=== PATIENT | male | born 1970 ===

== ENCOUNTER 2024-02-26 23:07 | Emergency (ER) | payer OTHER, MEDICAID, SELFPAY ==
[2024-02-26 23:11] VITALS: BP 180/87; PULSE 79; RESP 18; TEMP 36.6; O2SAT 93
[2024-02-26 23:19] VITALS: PULSE 77; O2SAT 95
[2024-02-26 23:20] VITALS: BP 174/85; PULSE 75; O2SAT 95
--- NOTE | 2024-02-26 23:26 | ED.OVERDOSE ---
HPI - Overdose General Chief Complaint: Toxicology Problem Stated Complaint: Toxicology Time Seen by Provider: 02/26/24 23:15 Source: EMS Mode of arrival: EMS History of Present Illness HPI Narrative: 53 year old male [place] for chest pain and altered mentation. At approximately 9:00 p.m. patient ingested 2000 mg of ?stoned [place] mushroom cookies and cream?. Per EMS patient would blankly stare at them for several minutes, and then would start yelling. Intent: other (recreation) Related Data Home Medications Medication Instructions Recorded Confirmed No Known Home Medications 02/26/24 02/26/24 Allergies Allergy/AdvReac Type Severity Reaction Status Date / Time No Known Drug Allergies Allergy Verified 02/26/24 23:18 Review of Systems Review of Systems Narrative: Limited due to patient condition Patient History Substance Use Type: hallucinogens Exam Initial Vital Signs Initial Vital Signs: Vital Signs Temperature 98 F 02/26/24 23:11 Pulse Rate 79 02/26/24 23:11 Respiratory Rate 18 02/26/24 23:11 Blood Pressure 180/87 H 02/26/24 23:11 Pulse Oximetry 93 02/26/24 23:11 Oxygen Delivery Method Room Air 02/26/24 23:11 Const: Awake, alert, agitated, yelling Cardiac: regular rate, regular rhythm RESP: unlabored, clear bilaterally, no wheezing GI: Soft, nontender, nondistended, no rebound, no guarding Skin: Warm, Dry, intact, no rashes Neuro: AO x3, CN II-XII grossly intact, moves all extremities Course Orders Ordered: ED Orders 02/26/24 23:26 EKG-12 Lead Routine 02/26/24 23:34 Chest [XR chest 1V] Stat 02/26/24 23:55 CBC Auto Diff [Complete Blood Count AUTO DIFF] Stat CMP [Comprehensive Metabolic Panel] Stat Troponin & CK Cardiac Panel Stat 02/27/24 02:00 Trop I [Troponin I] Stat Discontinued Medications Sodium Chloride (Normal Saline 0.9%) 1,000 mls @ 1,000 mls/hr IV BOLUS ONE Stop: 02/27/24 00:14 Last Infusion: 02/27/24 01:22 Dose: Infused Documented By: Admin: 02/26/24 23:57 Dose: 1,000 mls/hr Documented By: HERB Lorazepam (Lorazepam 2 Mg/Ml Inj) 2 mg IV NOW ONE Stop: 02/26/24 23:16 Last Admin: 02/27/24 01:43 Dose: Not Given Documented By: HERB Vital Signs Vital signs: Vital Signs - 8 hr 02/26/24 23:11 02/26/24 23:19 02/26/24 23:20 Temperature 98 F Pulse Rate 79 77 75 Respiratory Rate 18 Blood Pressure 180/87 H Pulse Oximetry 93 95 95 Oxygen Delivery Method Room Air 02/26/24 23:20 02/26/24 23:30 02/27/24 00:00 Temperature Pulse Rate 77 Respiratory Rate Blood Pressure 174/85 H 162/79 H Pulse Oximetry 95 Oxygen Delivery Method 02/27/24 00:00 02/27/24 00:30 02/27/24 01:00 Temperature Pulse Rate 77 78 80 Respiratory Rate 21 21 20 Blood Pressure Pulse Oximetry 96 98 97 Oxygen Delivery Method Room Air 02/27/24 01:00 02/27/24 01:30 02/27/24 02:00 Temperature Pulse Rate 78 79 Respiratory Rate 19 19 Blood Pressure 166/78 H Pulse Oximetry 97 96 Oxygen Delivery Method Room Air 02/27/24 02:00 Temperature Pulse Rate Respiratory Rate Blood Pressure 144/76 H Pulse Oximetry Oxygen Delivery Method MDM - Overdose Differential Diagnosis Differential diagnosis: Likely cocaine intoxication, suicide attempt by multiple drug overdose and poisoning by opiate or related narcotic Lab Data 02/26/24 23:55 02/26/24 23:55 Labs: Lab Results 02/26/24 02/27/24 Range/Units 23:55 02:00 WBC 13.1 H (4.5-11.0) X10^3/uL RBC 5.35 (4.5-5.9) X10^6/uL Hgb 16.0 (13.5-17.5) g/dL Hct 47.1 (41-53) % MCV 88.0 (80-100) fL MCH 29.9 (26-34) PG MCHC 34.0 (30-36) % RDW 15.4 H (11.6-14.8) % Plt Count 180 (150-400) X10^3/uL Neut % (Auto) 73.6 (50-75) % Lymph % (Auto) 17.0 L (25-40) % Carson % (Auto) 8.1 (3-14) % Eos % (Auto) 0.7 L (2-4) % Baso % (Auto) 0.6 (0-2) % Neut # (Auto) 9600 H (7940-0315) /uL Lymph # (Auto) 2200 (6277-3807) /uL Carson # (Auto) 1100 H (0-900) /uL Eos # (Auto) 100 (0-450) /uL Baso # (Auto) 100 (0-100) /uL Sodium 138 (137-145) mmol/L Potassium 3.7 (3.4-5.1) mmol/L Chloride 103 (98-107) mmol/L Carbon Dioxide 26 (22-32) mmol/L BUN 13 (9-20) mg/dL Creatinine 0.56 L (0.66-1.25) mg/dL Estimated GFR > 60 (>60) mL/min BUN/Creatinine Ratio 23.2 H (6-22) Glucose 238 H (70-100) mg/dL Calcium 8.8 (8.4-10.2) mg/dL Total Bilirubin 1.0 (0.2-1.3) mg/dL AST 28 (17-59) IU/L ALT 39 (<50) IU/L Alkaline Phosphatase 87 (38-126) U/L Total Creatine Kinase 69 (55-170) U/L Troponin I < 0.012 < 0.012 (0.01-0.034) ng/mL Total Protein 7.5 (6.3-8.2) g/dL Albumin 4.5 (3.5-5.0) g/dL Globulin 3.0 (1.7-4.1) g/dL Albumin/Globulin Ratio 1.5 (1.0-2.8) MDM Narrative Medical decision making narrative: Accidental ingestion of mushrooms substance from the gas station. Patient complaining of chest pain and shortness of breath, very panicked in the room. GIven ativan for agitation. Poison control recommends EKG and if no changes or seizures or hallucinations patient cleared. Troponins negative x2. Chest x-ray unremarkable. EKG nonischemic. Patient's agitation resolved, he is fully alert and oriented, resting comfortably in bed. Able to ambulate to and from the bathroom without difficulty. Family is at bedside, they will take patient home and look after him. Naloxone at Discharge Meets criteria for naloxone at discharge?: No Discharge Plan Departure Patient Disposition: Home Clinical Impression: Accidental drug ingestion Instructions: DI for Adverse Drug Reaction -- Other Activity Restrictions/Additional Instructions: You may resume activity, diet, etc. as normal. I do not recommend taking the substance again as you seem to have suffered some bad side effects. Prescriptions: No Action No Known Home Medications Stand Alone Forms: Patient Portal/API
[2024-02-26 23:30] VITALS: PULSE 77; O2SAT 95
--- NOTE | 2024-02-26 23:33 | PC.NURSE ---
Poison Control called regarding the ingestion of the mushroom product. The poison control staff member reports the effects of the product can last up to 10-12 hours with hallucinations and the possibility of EKG changes and seizures as serious side effects. patient should have cardiac monitoring and if medically cleared can go home when A&Ox3 and not hallucinating.
--- NOTE | 2024-02-26 23:34 | DI.RAD.S_ITS ---
PROCEDURE: XR CHEST 1V INDICATIONS: chest pain TECHNIQUE: One view of the chest was acquired. COMPARISON: None. FINDINGS: Surgical changes and devices: None. Lungs and pleura: Low lung volumes. Streaky bibasilar opacities favored to represent atelectasis. No dense consolidation. No pleural effusions or pneumothorax. Mediastinum: Mediastinal contours appear normal. Heart size is normal. Bones and chest wall: No suspicious bony lesions. Overlying soft tissues appear unremarkable. IMPRESSION: Mild streaky bibasilar opacities favored to represent atelectasis given low lung volumes. No dense consolidations. Otherwise, no acute cardiopulmonary abnormality seen. Dictated by: Flavio Pablo M.D. on 02/27/2024 at 0:11 Approved by: Flavio Pablo M.D. on 02/27/2024 at 0:11
--- NOTE | 2024-02-26 23:38 | PC.NURSE ---
Patient able to report he is at the [facility].
[2024-02-26] MEDS: SODIUM CHLORIDE 0.9% 1,000 ML 1000 ML IV (23:57)
[2024-02-27] VITALS: BP 162/79; PULSE 77; RESP 21; O2SAT 96
[2024-02-27] LABS: Add Manual Diff / Slide Review NO; Basophils Absolute Auto 100 /uL (0-100); Basophils Percent Auto 0.6 % (0-2); Eosinophils Absolute Auto 100 /uL (0-450); Eosinophils Percent Auto 0.7 % (2-4); Hematocrit 47.1 % (41-53); Lymphocytes Absolute Auto 2200 /uL (1100-4500); Mean Corpuscular Hemoglobin 29.9 PG (26-34); Monocytes Absolute Auto 1100 /uL (0-900); Monocytes Percent Auto 8.1 % (3-14); Neutrophils Absolute Auto 9600 /uL (1500-7000); Neutrophils Percent Auto 73.6 % (50-75); Platelet Count 180 X10^3/uL (150-400); Red Blood Cell Count 5.35 X10^6/uL (4.5-5.9); Red Cell Distribution Width 15.4 % (11.6-14.8); White Blood Cell Count 13.1 X10^3/uL (4.5-11.0)
[2024-02-27 00:16] LABS: Alanine Aminotransferase 39 IU/L (<50); Albumin 4.5 g/dL (3.5-5.0); Albumin Globulin Ratio 1.5 (1.0-2.8); Alkaline Phosphatase 87 U/L (38-126); Aspartate Aminotransferase 28 IU/L (17-59); BUN Creatinine Ratio 23.2 (6-22); Blood Urea Nitrogen 13 mg/dL (9-20); Calcium 8.8 mg/dL (8.4-10.2); Carbon Dioxide 26 mmol/L (22-32); Chloride 103 mmol/L (98-107); Creatine Kinase 69 U/L (55-170); Estimated Glomerular Filt Rate > 60 mL/min (>60); Glucose 238 mg/dL (70-100); HEMOLYSIS < 15 (0-50); Potassium 3.7 mmol/L (3.4-5.1); Sodium 138 mmol/L (137-145); Total Protein 7.5 g/dL (6.3-8.2)
[2024-02-27 00:28] LABS: Troponin I < 0.012 ng/mL (0.01-0.034)
[2024-02-27 00:30] VITALS: PULSE 78; RESP 21; O2SAT 98
[2024-02-27 01:00] VITALS: BP 166/78; PULSE 80; RESP 20; O2SAT 97
[2024-02-27 01:30] VITALS: PULSE 78; RESP 19; O2SAT 97
[2024-02-27 02:00] VITALS: BP 144/76; PULSE 79; RESP 19; O2SAT 96
[2024-02-27 02:34] LABS: Troponin I < 0.012 ng/mL (0.01-0.034)
== END 2024-02-27 02:50 | disposition home or self-care (01) ==
PROVIDERS: Emergency Provider Emergency Medicine
DX: T62.0X1A Toxic effect of ingested mushrooms, accidental (unintentional), initial encounter (principal); R07.9 Chest pain, unspecified; R06.02 Shortness of breath; R03.0 Elevated blood-pressure reading, without diagnosis of hypertension
CPT/HCPCS: 36415; 71045; 80053; 82550; 84484; 85025; 93005; 99284; 99285